=== PATIENT | male | born 2000 | race Caucasian/White ===

== ENCOUNTER 2021-02-14 14:26 | Emergency (ER) | payer OTHER ==
[2021-02-14 15:41] LABS: BASOPHIL 0.5 % (0-2); EOSINOPHIL 2.5 % (0-5); HCT 41.9 % (42.0-52.0); HGB 14.3 g/dl (13.2-18.0); LYMPHOCYTE 8.6 % (15-48); MCH 29.1 pg (25.0-31.0); MCHC 34.1 g/dL (32.0-36.0); MCV 85.3 fL (78.0-100.0); MONOCYTE 7.5 % (0-12); NEUTROPHIL 80.5 % (41-80); NRBC 0; PLT 283 K/uL (150-400); RBC 4.91 M/uL (4.70-6.00); RDW 12.2 % (11.5-14.0); WBC 12.4 K/uL (4.0-10.5)
[2021-02-14 16:04] LABS: BUN/CREAT RATIO (CALC) 16.9 RATIO; CREATININE 0.77 mg/dL (0.67-1.17)
[2021-02-14] MEDS ORDERED: ZOFRAN4 M1 PO (16:56)
== END 2021-02-14 17:27 | disposition home or self-care (01) ==
LOC: FER 14:26
PROVIDERS: Nurse Practitioner Family
DX: R11.2 Nausea with vomiting, unspecified (principal); R19.7 Diarrhea, unspecified; Z20.822 Contact with and (suspected) exposure to COVID-19
CPT/HCPCS: 36415; 80048; 85025; J2405; J7030; U0002